=== PATIENT | female | born 1945 | race Caucasian/White ===

== ENCOUNTER 2019-07-05 14:39 | Emergency (ER) | payer OTHER ==
[~2019-07-05] VITALS: Ht 170.2 cm; Wt 77.1 kg
[2019-07-05 15:14] LABS: Basophils # (auto) 0 uL; Basophils % (auto) 0.9 % (0.0-2.0); Eosinophils # (auto) 0 uL; Eosinophils % (auto) 0.9 % (0.0-7.0); Hematocrit 42.6 % (36.0-46.0); Hemoglobin 14.5 g/dL (12.2-16.2); Lymphocytes # (auto) 1.2 uL; Lymphocytes % (auto) 23.4 % (10.0-50.0); Mean Corpuscular Hemoglobin 30.8 pg (28.0-32.0); Mean Corpuscular Hgb Conc. 34.1 g/dL (32.0-36.0); Mean Corpuscular Volume 90.5 fL (80.0-100.0); Monocytes # (auto) 0.5 uL; Neutrophils # (auto) 3.3 uL; Neutrophils % (auto) 65.8 % (37.0-80.0); Platelet Count (auto) 244 10^3/uL (140-450); Red Blood Cells 4.71 10^6/uL (4.0-5.20); Red Cell Distribution Width 13.8 % (11.8-14.3)
[2019-07-05 15:35] LABS: Alanine Aminotransferase 23 U/L (13-56); Anion Gap 5 (5-15); Aspartate Aminotransferase 15 U/L (15-37); BUN/Creatinine Ratio 17.8; Blood Urea Nitrogen 18 mg/dL (7-18); Carbon Dioxide 28 mmol/L (21-32); Chloride 105 mmol/L (98-107); GFR African American 69 mL/min; GFR Non-African American 57 mL/min; Glucose 111 mg/dL (74-106); Magnesium 2.2 mg/dL (1.6-2.6); Potassium 3.5 mmol/L (3.5-5.1); Sodium 138 mmol/L (136-145)
[2019-07-05 15:39] LABS: Alkaline Phosphatase 96 U/L (45-117); Bilirubin, Total 0.3 mg/dL (0.2-1.0); Total Protein 7.3 g/dL (6.4-8.2)
[2019-07-05] MEDS ORDERED: HYDROcodone-ACET 10/325MG TAB PO ONE (16:30)
[2019-07-05 17:18] LABS: Urine Bacteria FEW /hpf (None Seen); Urine Blood Negative /uL (Negative); Urine WBC 8 /hpf (0 - 5)
[2019-07-05 18:33] LABS: Alcohol, Urine < 3.0 mg/dL (0-5); Amphetamine Screen, Urine NEGATIVE (NEGATIVE); Barbiturate Scree,Urine NEGATIVE (NEGATIVE); Benzodiazephine Screen, Urine NEGATIVE (NEGATIVE); Cannabinoid Screen, Urine NEGATIVE (NEGATIVE); Cocaine Screen, Urine NEGATIVE (NEGATIVE); Opiate Scree,Urine NEGATIVE (NEGATIVE); Phencyclidine Screen, Urine NEGATIVE (NEGATIVE)
[2019-07-05 20:24] VITALS: BP 105/66
== END 2019-07-05 20:56 ==
LOC: EDBD 14:39 → ER 14:44
DX: I49.3 Ventricular premature depolarization (principal); R51 Headache; R00.2 Palpitations; E78.00 Pure hypercholesterolemia, unspecified; I10 Essential (primary) hypertension; Z90.89 Acquired absence of other organs
CPT/HCPCS: 36415; 70450; 71045; 80053; 80307; 81001; 83735; 84484; 85025; 93005